=== PATIENT | female | born 1955 | race Caucasian/White ===

== ENCOUNTER 2016-08-11 10:59 | Inpatient (IN) | payer OTHER ==
[2016-08-11] MEDS ORDERED: IPRATROPIUM/ALBUTEROL 3 ML DEYVIAL IH ONE (11:17)
[2016-08-11] MEDS ORDERED: methylPREDNISolone SOD SUCC 125 MG/2 ML VIAL IVP ONE (11:20)
--- NOTE | 2016-08-11 11:30 | CPEKG ---
Heart Rate: 79 RR Interval: 759 P-R Interval: 164 QRSD Interval: 94 QT Interval: 396 QTC Interval: 455 P [place]: 44 QRS [place]: 9 T Wave [place]: 16 EKG Severity - BORDERLINE ECG - EKG Impression: SINUS RHYTHM EKG Impression: BORDERLINE T ABNORMALITIES, ANTERIOR LEADS Electronically Signed By: Rl Abdalla 11-Aug-2016 15:35:31
[2016-08-11] MEDS ORDERED: ALBUTEROL 3 ML DEYVIAL IH ONE ×3 (11:39→15:08)
[2016-08-11 12:11] LABS: % IMMATURE GRANULYOCYTES 0.2 % (0.0-1.1); ABSOLUTE IMMATURE GRANULOCYTES 0.01 10^3/uL (0.00-0.10); ADD DIFF? NO; ADD MORPH? NO; ADD SCAN? NO; ATYPICAL LYMPHOCYTE FLAG 10 (0-99); FRAGMENT RBC FLAG 0 (0-99); HEMATOCRIT 46.2 % (38.0-47.0); HEMOGLOBIN 15.5 g/dL (12.6-16.3); LEFT SHIFT FLG 0 (0-99); LIPEMIA HEMOLYSIS FLAG 80 (0-99); MEAN CELL HEMOGLOBIN 32.1 pg (27.9-34.1); MEAN CELL HEMOGLOBIN CONCENTR. 33.5 g/dL (32.4-36.7); MEAN CELL VOLUME 95.7 fL (81.5-99.8); MEAN PLATELET VOLUME 10.2 fL (8.7-11.7); PLATELET CLUMPS FLAG 0 (0-99); PLATELET COUNT 201 10^3/uL (150-400); RED BLOOD CELL COUNT 4.83 10^6/uL (4.18-5.33); RED CELL DISTRIBUTION WIDTH 13.6 % (11.5-15.2)
[2016-08-11] MEDS ORDERED: NS 500 ML IV ONE (13:00)
[2016-08-11] MEDS ORDERED: IOPAMIDOL (ISOVUE 370) 100 ML BTL IV ONE (13:35)
--- NOTE | 2016-08-11 14:35 | CPEKG ---
Heart Rate: 87 RR Interval: 690 P-R Interval: 180 QRSD Interval: 98 QT Interval: 392 QTC Interval: 472 P [place]: 44 QRS [place]: 4 T Wave [place]: 47 EKG Severity - BORDERLINE ECG - EKG Impression: SINUS RHYTHM EKG Impression: PROBABLE LEFT ATRIAL ABNORMALITY Electronically Signed By: Rl Abdalla 11-Aug-2016 15:35:20
--- NOTE | 2016-08-11 15:20 | UCPHY ---
H & P Patient Type: Established Chief Complaint Nursing Narrative: fatigue, unable to breathe with low grade fever since yesterday in pt with known asthma. home meds not helping. Time Seen by Provider: 08/11/16 11:19 HPI/ROS: This patient describes onset of illness on Friday afternoon with a dry intermittent cough and wheeze. She has associated coryza in over the weekend her symptoms significantly worsen despite use of her albuterol inhaler. This morning she awakened with moderate respiratory distress despite the albuterol and came in for evaluation. She also reports chest pain since the 1st day of her symptoms-on Friday. She describes this as generalized achiness in her chest that worsens with coughing. She states the intensity is moderate. She is uncertain if this is bronchial in origin or not. At times she has a squeezing pain as well. Peak intensity of her chest discomfort is 8/10. This is the worst dyspnea that she has ever had with a history of prior asthma that is typically mild to moderate. ROS: No high fevers or chills. She does think she has low-grade fevers. She has not checked her temperature at home. She does have fatigue that is increased today. No other constitutional symptoms. HEENT: Coryza. No significant sore throat. No ear pain. No other HEENT complaints. Pulmonary: No pleuritic pain. No hemoptysis. No significant production to her cough. Cardiovascular: No lightheadedness. No heart palpitations. She reports mild swelling to the left foot over the past few days. She admits sedentary lifestyle particularly at work where she often has to remain seated for several hours at a time. No calf pain. GI: No belly pain. No nausea vomiting. Endocrine: No diaphoresis or other symptoms : No complaints 10 point ROS is otherwise negative Source: Patient Exam Limitations: No limitations - Personal History Current Tetanus Diphtheria and Acellular Pertussis (TDAP): Yes - Medical/Surgical History PMH: Xsmdmf-yldm-df-moderate Breast cancer with mastectomy several years ago cancer free on recheck since then. Hypothyroidism GERD Obesity Hx Asthma: Yes Hx Chronic Respiratory Disease: No Hx Diabetes: No Hx Cardiac Disease: No Hx Renal Disease: No Hx Cirrhosis: No Hx Alcoholism: No Hx HIV/AIDS: No Hx Splenectomy or Spleen Trauma: No Other PMH: ASTHMA, KNEE SURG, HYST, LAP BAND, SINUS SURG, ANXIETY, R masectomy, GERD - Family History Significant Family History: No pertinent family hx - Social History Smoking Status: Never smoked Alcohol Use: None Drug Use: None Additional Social History: She is accompanied by her today. - Physical Exam Exam: Vital signs are initially notable for hypertension, tachypnea and hypoxia. General Appearance: Mild respiratory distress on arrival. Eyes: Pupils equal and round no pallor or injection. ENT, Mouth: Mucous membranes moist. Respiratory: Diffuse rhonchi and expiratory wheezing. No rales are appreciated. Cardiovascular: Tachycardic with no murmur gallop or rub. She does have mild left pedal/ankle edema. No posterior calf tenderness. Gastrointestinal: Abdomen is soft and nontender, no masses, bowel sounds normal. Neurological: Alert with no focal deficits. Skin: Warm and dry, no rashes. Musculoskeletal: Neck is supple nontender. Extremities are symmetrical, full range of motion. Psychiatric: Mood and affect are normal DIFFERENTIAL DIAGNOSIS: After history and physical exam differential diagnosis was considered for asthma exacerbation, PE, coronary syndrome, CHF, pneumonia, pneumothorax Constitutional: Initial Vital Signs O2 Sat (%) 96 08/11/16 11:20 O2 Delivery Mode Room Air O2 (L/minute) 4 Allergies/Adverse Reactions: No Known Allergies Allergy (Verified 08/11/16 11:39) Home Medications: Medication Instructions Recorded Advair 250/50 (RX) 11/01/13 Albuterol 11/01/13 Protonix 11/01/13 Wellbutrin Sr 11/27/14 Thyroid 08/11/16 Medical Decision Making - Diagnostics EKG Interpretation: 12 lead EKG performed at 11:20 a.m. reveals sinus rhythm at 79 Intervals: Normal throughout [place]: Normal throughout ST segments are notable for T-wave inversion in lead V2 Overall assessment sinus rhythm with borderline anterior T-wave abnormalities with no prior EKG for comparison cannot rule out anterior ischemia, electrolyte abnormality or albuterol effect Repeat EKG performed at 2:32 p.m. to rule out interval change reveals sinus rhythm at 87 Intervals and axis remained normal T-wave inversion in V2 persists with no interval change by my interpretation. Imaging: Chest x-ray: Evidence of airway disease, borderline cardiomegaly without focal infiltrate by my interpretation CT angio chest wet read by Dr. Dean Ledezma: Negative for pulmonary embolism. No infiltrates. Heart size appears normal. There is slight increase in mediastinal lymphadenopathy compared to prior study and he recommends a repeat since diet the in the future and follow up with her oncologist. He does not appreciate evidence of pulmonary edema on the CT angio. No effusions. ED Course/Re-evaluation: IV, monitor, nasal cannula O2-4 L with improvement in O2 sat from low to mid 80s to low 90s. DuoNeb followed by 2 albuterol nebs with increased aeration and some subjective relief but persistent hypoxia to the mid 80s. On recheck her aeration is improved but persistent significant wheezing is present primarily on expiration. After her return from CT angio she has slight increase in symptoms treated with another albuterol neb. I counseled her regarding her negative CT angio chest but concern for potential mild increase in mediastinal lymph node size warranting oncology follow-up. I discussed the case with Dr. Murray Milligan, hospitalist at [facility] accepts patient for transfer for admission to [facility] for further treatment for this patient with URI complicated by asthma exacerbation hypoxia. After workup, with find no evidence of pulmonary embolism, coronary syndrome, pneumothorax, pneumonia or other complicating factors except for mild enlargement of her mediastinal lymph nodes warranting follow up with Oncology. I think that her EKG is likely baseline with inverted V2 but also recommended follow up with Cardiology for further workup given her symptoms. - Data Points Laboratory Results: Laboratory Results 08/11/16 12:02 08/11/16 12:02 08/11/16 08/11/16 08/11/16 12:32 12:02 12:02 WBC RBC Hgb POC Hgb 16.7 gm/dL H gm/dL (12.3-15.9) Hct POC Hct 49 % H % (35.5-47.5) MCV MCH MCHC RDW Plt Count MPV Neut % (Auto) Lymph % (Auto) [place] % (Auto) Eos % (Auto) Baso % (Auto) Nucleat RBC Rel Count Absolute Neuts (auto) Absolute Lymphs (auto) Absolute Monos (auto) Absolute Eos (auto) Absolute Basos (auto) Absolute Nucleated RBC Immature Gran % Immature Gran # D-Dimer 1.62 ug/mLFEU H ug/mLFEU (0.00-0.50) POC Sodium 144 mEq/L mEq/L (134-144) Sodium REJ POC Potassium 4.3 mEq/L mEq/L (3.3-5.0) Potassium REJ POC Chloride 102 mEq/L mEq/L (96-108) Chloride REJ Carbon Dioxide REJ Anion Gap REJ POC BUN 16 mg/dL mg/dL (7-23) BUN REJ Creatinine REJ POC Creatinine 0.8 mg/dL mg/dL (0.6-1.2) Estimated GFR REJ Glucose REJ POC Glucose 88 mg/dL mg/dL (70-100) Calcium REJ Troponin I REJ 08/11/16 12:02 WBC 5.22 10^3/uL 10^3/uL (3.80-9.50) RBC 4.83 10^6/uL 10^6/uL (4.18-5.33) Hgb 15.5 g/dL g/dL (12.6-16.3) POC Hgb Hct 46.2 % % (38.0-47.0) POC Hct MCV 95.7 fL fL (81.5-99.8) MCH 32.1 pg pg (27.9-34.1) MCHC 33.5 g/dL g/dL (32.4-36.7) RDW 13.6 % % (11.5-15.2) Plt Count 201 10^3/uL 10^3/uL (150-400) MPV 10.2 fL fL (8.7-11.7) Neut % (Auto) 69.6 % % (39.3-74.2) Lymph % (Auto) 14.8 % L % (15.0-45.0) [place] % (Auto) 12.5 % % (4.5-13.0) Eos % (Auto) 2.5 % % (0.6-7.6) Baso % (Auto) 0.4 % % (0.3-1.7) Nucleat RBC Rel Count 0.0 % % (0.0-0.2) Absolute Neuts (auto) 3.64 10^3/uL 10^3/uL (1.70-6.50) Absolute Lymphs (auto) 0.77 10^3/uL L 10^3/uL (1.00-3.00) Absolute Monos (auto) 0.65 10^3/uL 10^3/uL (0.30-0.80) Absolute Eos (auto) 0.13 10^3/uL 10^3/uL (0.03-0.40) Absolute Basos (auto) 0.02 10^3/uL 10^3/uL (0.02-0.10) Absolute Nucleated RBC 0.00 10^3/uL 10^3/uL (0-0.01) Immature Gran % 0.2 % % (0.0-1.1) Immature Gran # 0.01 10^3/uL 10^3/uL (0.00-0.10) D-Dimer POC Sodium Sodium POC Potassium Potassium POC Chloride Chloride Carbon Dioxide Anion Gap POC BUN BUN Creatinine POC Creatinine Estimated GFR Glucose POC Glucose Calcium Troponin I Medications Given: Discontinued Medications Albuterol (Proventil Neb) 3 ml IH EDNOW ONE Stop: 08/11/16 11:40 Last Admin: 08/11/16 11:56 Dose: 3 ml Albuterol (Proventil Neb) 3 ml IH CONT ONE Stop: 08/11/16 12:19 Last Admin: 08/11/16 12:45 Dose: 3 ml Albuterol/Ipratropium (Duoneb) 3 ml IH EDNOW ONE Stop: 08/11/16 11:18 Last Admin: 08/11/16 11:38 Dose: 3 ml Methylprednisolone Sodium Succinate (Solu-Medrol) 125 mg IVP EDNOW ONE Stop: 08/11/16 11:21 Last Admin: 08/11/16 12:07 Dose: 125 mg Point of Care Test Results: 08/11/16 12:32 POC Sodium 144 POC Potassium 4.3 POC Chloride 102 POC BUN 16 POC Creatinine 0.8 POC Glucose 88 Departure - Departure Disposition: [facility] Inpatient Acute Clinical Impression: Asthma exacerbation, Hypoxia, Viral upper respiratory infection, Mediastinal lymphadenopathy Condition: Fair Referrals: MICHELL MILLER [Other] - As per Instructions - PQRS PQRS Measurement: NA
[2016-08-11] MEDS ORDERED: ALBUTEROL 3 ML DEYVIAL IH PRN (17:39)
[2016-08-11] MEDS ORDERED: ONDANSETRON 4 MG/2 ML VIAL IVP PRN (17:39)
[2016-08-11] MEDS ORDERED: ONDANSETRON DISINTEGRATING 4 MG TAB PO PRN (17:39)
--- NOTE | 2016-08-11 18:24 | GHP ---
[f rep st] HISTORY AND PHYSICAL DATE OF ADMISSION: 08/11/2016 HISTORY OF PRESENT ILLNESS: The patient is a pleasant 60-year-old female with a history of mild int ermittent asthma as well as remote breast cancer who presents with several days of increasing shortn ess of breath and work of breathing, as well as wheezing. She has had a sore throat and hoarse voic e. A number of people at work have had "the crud." She has not had drenching night sweats. She fuentes s had low-grade temperatures. She has had no hemoptysis. She has had regular breast cancer followu p, and she took 5 years of tamoxifen for estrogen receptors. She says there is occasional chest discomfort with coughing. She has had no weight loss of late. REVIEW OF SYSTEMS: A complete 10-point review of systems was conducted and negative except as noted in the HPI. PAST MEDICAL HISTORY: 1. Breast cancer. 2. Laparoscopic gastric banding. 3. Hysterectomy. 4. History of knee surgery. 5. Hypothyroidism. 6. Anxiety. 7. Right mastectomy. 8. Reflux. ALLERGIES: No known drug allergies. MEDICATIONS: [place] Thyroid, Protonix, Advair, bupropion, and albuterol. SOCIAL HISTORY: She lives in [place]. 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 She is a nonsmoker. Minimal alcohol. FAMILY HISTORY: Reviewed and unremarkable. PHYSICAL EXAMINATION: VITAL SIGNS: Temperature 37.4, blood pressure 201/123 and now 163/85, pulse 96, breathing 20 times a minute, 81% on room air and now 90 on 4 L. GENERAL: In no acute distress. HEENT: Sclerae anicteric. Oropharynx clear. Mucous membranes moist. NECK: Supple, without lym phadenopathy or JVD. LUNGS: Showed decreased air movement with scattered bilateral wheezes, with n o focal decreased breath sounds and no crackles. HEART: S1, S2, without murmurs. ABDOMEN: Soft, nontender, nondistended. EXTREMITIES: Lower extremities without edema. Calves nontender. SKIN: Without rash. NEUROLOGIC: Exam is nonfocal. LABORATORY DATA: White count is 5.2, hematocrit is 46, and platelets are 201,000. D-dimer is 1.6. Sodium 144, potassium 4.3, chloride 102, BUN 16, creatinine 0.8, glucose 88. CTA of the chest show s no acute pulmonary embolism. There is some mediastinal lymphadenopathy. Chest x-ray interpreted by me shows possible cardiomegaly, although it was a 1-view chest x-ray. No infiltrate. Low-quality film. EKG interpreted by me shows sinus at 79 with normal axis and interv als, and T-wave inversion in lead 3 as well as V1 and V2. Lead V2 looks an awful lot like lead V1. There is no prior for comparison. I have discussed the case Dr. Galan in the emergency department. ASSESSMENT AND PLAN: This is a 60-year-old female with breast cancer and asthma who presents with a pparent bronchitis. 1. Bronchitis. This is severe, with an asthma exacerbation and hypoxia. We will treat her steroid s. Check influenza. Do scheduled DuoNeb and p.r.n. albuterol q.2 hours. We can hold the antibioti cs at this time given her absence of lung disease or immunocompromise. 2. Mediastinal lymphadenopathy. This is more than likely secondary to viral syndrome, but followup imaging is warranted in 4-6 weeks to ensure resolution given her history of breast cancer. There a re no other red flag symptoms. 3. Hypoxia. This is secondary to hyperinflation from her viral illness. I think pulmonary embolis m is ruled out. She does not have pneumonia. 4. Prophylaxis. Moderate risk. Started on pharmacologic DVT prophylaxis. DISPOSITION: Observation status. /[id number]/MODL
[2016-08-11] MEDS: predniSONE 20 MG TAB PO SCH (18:25)
[2016-08-11] MEDS: buPROPion XL 150 MG TAB PO SCH (18:25)
[2016-08-11] MEDS: ACETAMINOPHEN 325 MG TAB PO PRN (18:25)
[2016-08-11] MEDS: IPRATROPIUM/ALBUTEROL 3 ML DEYVIAL IH SCH (19:55)
[2016-08-11] MEDS: FLUTICASONE/SALMETER 250/50MCG DISKUS IH SCH (20:03)
[2016-08-11] MEDS: OSELTAMIVIR PHOSPHATE 75 MG CAP PO SCH (20:36)
[2016-08-12] MEDS: BENZONATATE 100 MG CAP PO PRN ×2 (01:02→21:03)
[2016-08-12] MEDS: ACETAMINOPHEN 325 MG TAB PO PRN (01:03)
[2016-08-12 04:30] LABS: % IMMATURE GRANULYOCYTES 0.3 % (0.0-1.1); ABSOLUTE IMMATURE GRANULOCYTES 0.01 10^3/uL (0.00-0.10); ADD DIFF? NO; ADD MORPH? NO; ADD SCAN? NO; ATYPICAL LYMPHOCYTE FLAG 0 (0-99); FRAGMENT RBC FLAG 0 (0-99); HEMATOCRIT 42.5 % (38.0-47.0); HEMOGLOBIN 14.2 g/dL (12.6-16.3); LEFT SHIFT FLG 0 (0-99); LIPEMIA HEMOLYSIS FLAG 80 (0-99); MEAN CELL HEMOGLOBIN 32.3 pg (27.9-34.1); MEAN CELL HEMOGLOBIN CONCENTR. 33.4 g/dL (32.4-36.7); MEAN CELL VOLUME 96.6 fL (81.5-99.8); MEAN PLATELET VOLUME 9.9 fL (8.7-11.7); PLATELET CLUMPS FLAG 0 (0-99); PLATELET COUNT 183 10^3/uL (150-400); RED CELL DISTRIBUTION WIDTH 13.6 % (11.5-15.2)
[2016-08-12 04:49] LABS: ANION GAP 10 mEq/L (8-16); CARBON DIOXIDE 21 mEq/l (22-31); CHLORIDE 109 mEq/L (97-110); CREATININE 0.5 mg/dL (0.6-1.0); GLOMERULAR FILTRATION RATE > 60; GLUCOSE 135 mg/dL (70-100); POTASSIUM 3.9 mEq/L (3.5-5.2); SODIUM 140 mEq/L (134-144)
[2016-08-12] MEDS: IPRATROPIUM/ALBUTEROL 3 ML DEYVIAL IH SCH ×4 (06:19→20:48)
[2016-08-12] MEDS: FLUTICASONE/SALMETER 250/50MCG DISKUS IH SCH ×2 (06:24→20:48)
[2016-08-12] MEDS ORDERED: OSELTAMIVIR PHOSPHATE 75 MG CAP PO SCH (08:00)
[2016-08-12] MEDS: predniSONE 20 MG TAB PO SCH (08:49)
[2016-08-12] MEDS: PANTOPRAZOLE SODIUM 40 MG TAB PO SCH (08:50)
[2016-08-12] MEDS: buPROPion XL 150 MG TAB PO SCH (08:50)
[2016-08-12] MEDS: OSELTAMIVIR PHOSPHATE 75 MG CAP PO SCH ×2 (08:50→18:05)
[2016-08-12] MEDS ORDERED: ENOXAPARIN 40 MG/0.4 ML SYR SC SCH (09:00)
--- NOTE | 2016-08-12 09:45 | HOSPPROG ---
Hospitalist Progress Note Assessment/Plan: 60 yo F w influenza B, severe asthma exacerbation asthma: continue steroids, nebs ok to use po steroids exam improved, hypoxemia worse hypoxemia: severe check cxr to look for progressive airspace disease wean 02 influenza: tamiflu started proph: enox mediastinal LAD: almost certainly due to viral illness but will need repeat CT given h/o breast CA dispo: inpatient Subjective: case d/w dr younger. worsening hypoxia. symptomatically improved Objective: Vital Signs Temp Pulse Resp BP Pulse Ox 36.7 C 73 18 153/76 H 93 08/12/16 09:13 08/12/16 09:13 08/12/16 09:13 08/12/16 09:13 08/12/16 09:13 Laboratory Results 08/12/16 04:16 08/12/16 04:16 08/11/16 08/12/16 08/13/16 05:59 05:59 05:59 Intake Total 1000 Balance 1000 - Physical Exam Constitutional: no apparent distress, appears nourished Eyes: PERRL, anicteric sclera Ears, Nose, Mouth, Throat: moist mucous membranes, hearing normal Cardiovascular: regular rate and rhythym, no murmur, rub, or gallop Respiratory: no respiratory distress, other (improved air movement, scattered wheeze. no areas of focal decreased breath sounds) Gastrointestinal: normoactive bowel sounds, soft, non-tender abdomen Genitourinary: No montoya in urethra Skin: warm, normal color Musculoskeletal: full muscle strength, no muscle tenderness Neurologic: AAOx3 ICD10 Worksheet Patient Problems: Problems Problem Status Onset Asthma exacerbation Acute Hypoxia Acute Mediastinal lymphadenopathy Acute Viral upper respiratory infection Acute
[2016-08-12] MEDS: AZITHROMYCIN IV 500 MG in D5W 250 ML IV SCH (16:20)
[2016-08-12] MEDS: ENOXAPARIN 40 MG/0.4 ML SYR SC SCH (21:02)
[2016-08-13] MEDS: IPRATROPIUM/ALBUTEROL 3 ML DEYVIAL IH SCH ×4 (06:48→20:15)
[2016-08-13] MEDS: AZITHROMYCIN IV 500 MG in D5W 250 ML IV SCH (08:33)
[2016-08-13] MEDS: PANTOPRAZOLE SODIUM 40 MG TAB PO SCH (08:33)
[2016-08-13] MEDS: CYANO/VITAMIN B12 100 MCG TAB PO SCH (08:33)
[2016-08-13] MEDS: buPROPion XL 150 MG TAB PO SCH (08:33)
[2016-08-13] MEDS: predniSONE 20 MG TAB PO SCH (08:33)
[2016-08-13] MEDS: OSELTAMIVIR PHOSPHATE 75 MG CAP PO SCH ×2 (08:34→17:53)
[2016-08-13] MEDS: ENOXAPARIN 40 MG/0.4 ML SYR SC SCH ×2 (08:36→20:00)
[2016-08-13] MEDS: FLUTICASONE/SALMETER 250/50MCG DISKUS IH SCH ×2 (08:53→20:15)
[2016-08-13] MEDS: NATURE THYROID PO SCH (08:55)
[2016-08-13] MEDS ORDERED: NATURE THROID PO SCH (09:00)
--- NOTE | 2016-08-13 09:56 | HOSPPROG ---
Hospitalist Progress Note Assessment/Plan: 60 yo F w influenza B, severe asthma exacerbation asthma: continue steroids, nebs ok to use po steroids exam improved, hypoxemia worse CAP: uncertain if viral vs secondary bacterial pneumonia day 2 ceftriaxone/azithro hypoxemia: severe check cxr to look for progressive airspace disease wean 02 high risk- still requiring 10 L. failed wean at 5 L this AM influenza: tamiflu started proph: enox mediastinal LAD: almost certainly due to viral illness but will need repeat CT given h/o breast CA dispo: inpatient Subjective: afebrile. weaning 02 Objective: Vital Signs Temp Pulse Resp BP Pulse Ox 37.3 C 69 20 157/107 H 93 08/13/16 08:35 08/13/16 08:35 08/13/16 08:35 08/13/16 08:51 08/13/16 08:35 08/12/16 08/13/16 08/14/16 05:59 05:59 05:59 Intake Total 500 Balance 500 - Physical Exam Constitutional: no apparent distress, appears nourished Eyes: PERRL, anicteric sclera Ears, Nose, Mouth, Throat: moist mucous membranes, hearing normal Cardiovascular: regular rate and rhythym, no murmur, rub, or gallop, No tachycardia Respiratory: no respiratory distress, inspiratory crackles, No no rales or rhonchi, No expiratory wheeze Gastrointestinal: normoactive bowel sounds, soft, non-tender abdomen Genitourinary: no bladder fullness, No montoya in urethra Skin: warm, normal color Musculoskeletal: full muscle strength, no muscle tenderness Neurologic: AAOx3, sensation intact bilaterally Psychiatric: interacting appropriately ICD10 Worksheet Patient Problems: Problems Problem Status Onset Asthma exacerbation Acute Hypoxia Acute Mediastinal lymphadenopathy Acute Viral upper respiratory infection Acute
[2016-08-14] MEDS: IPRATROPIUM/ALBUTEROL 3 ML DEYVIAL IH SCH ×2 (06:06→09:28)
[2016-08-14 08:25] VITALS: RESP 18
--- NOTE | 2016-08-14 08:41 | HOSPPROG ---
Hospitalist Progress Note Assessment/Plan: #Acute hypoxemic resp failure: multifactorial with asthma, flu and PNA #Influenza B: Tamiflu #Asthma exacerbation: steroids and nebs #Mediastinal LAD: likely viral. Repeat CT given h/o breast cancer Disp: DC today Subjective: no SOB Objective: Vital Signs Temp Pulse Resp BP Pulse Ox 37.2 C 70 18 151/71 H 91 L 08/14/16 08:00 08/14/16 08:00 08/14/16 08:00 08/14/16 08:00 08/14/16 08:00 08/13/16 08/14/16 08/15/16 05:59 05:59 05:59 Intake Total 500 1250 Balance 500 1250 - Physical Exam Constitutional: no apparent distress Eyes: PERRL Cardiovascular: regular rate and rhythym, no murmur, rub, or gallop Respiratory: no respiratory distress, other (no wheezes, moving good air) Skin: warm Musculoskeletal: full muscle strength Neurologic: AAOx3 Psychiatric: interacting appropriately ICD10 Worksheet Patient Problems: Problems Problem Status Onset Asthma exacerbation Acute Hypoxia Acute Mediastinal lymphadenopathy Acute Viral upper respiratory infection Acute
[2016-08-14] MEDS: buPROPion XL 150 MG TAB PO SCH (08:43)
[2016-08-14] MEDS: OSELTAMIVIR PHOSPHATE 75 MG CAP PO SCH (08:43)
[2016-08-14] MEDS: predniSONE 20 MG TAB PO SCH (08:43)
[2016-08-14] MEDS: PANTOPRAZOLE SODIUM 40 MG TAB PO SCH (08:43)
[2016-08-14] MEDS: CYANO/VITAMIN B12 100 MCG TAB PO SCH (08:43)
[2016-08-14] MEDS: AZITHROMYCIN IV 500 MG in D5W 250 ML IV SCH (08:44)
[2016-08-14] MEDS: NATURE THYROID PO SCH (08:45)
[2016-08-14] MEDS: FLUTICASONE/SALMETER 250/50MCG DISKUS IH SCH (08:45)
[2016-08-14] MEDS: ENOXAPARIN 40 MG/0.4 ML SYR SC SCH (08:59)
--- NOTE | 2016-08-14 10:11 | GDS ---
[f rep st] DISCHARGE SUMMARY DISCHARGE DIAGNOSES: 1. Acute hypoxic respiratory failure. 2. Influenza B. 3. Asthma exacerbation. 4. Community-acquired pneumonia. 5. Mediastinal lymphadenopathy. HISTORY OF PRESENT ILLNESS: The patient is a 60-year-old female with history of mild intermittent a sthma and remote breast cancer, presenting with several days of increasing shortness of breath and w heezing. She also reported sore throat and hoarse voice. She has had low-grade fevers. Some chest discomfort with coughing. The patient was initially seen in urgent care clinic and was found to be hypoxic. CTA was negative for pulmonary embolism. HOSPITAL COURSE BY PROBLEM: 1. Acute hypoxic respiratory failure: Multifactorial with influenza B community-acquired pneumonia and asthma exacerbation. Patient's O2 saturations have much improved. She will need to be dischar ged on 1 L nasal cannula, and to follow up with her PCP. 2. Influenza B: Complete 5 days of Tamiflu. 3. Community-acquired pneumonia: We treated empirically with ceftriaxone and azithromycin here. W ill complete a course of Zithromax at discharge. 4. Asthma exacerbation: Secondary to influenza and pneumonia. She will complete a course of azith romycin and prednisone burst. Provided albuterol nebulizer treatment at home. 5. Mediastinal lymphadenopathy: Likely reactive from acute infection. But, given history of breas t cancer, recommend followup CT. 6. History of breast cancer: Tamoxifen therapy for 5 years. Follow up as previously scheduled. DISPOSITION: Patient is stable for discharge. FOLLOWUP: 1. PCP for oxygen. 2. Repeat CT chest in 3-6 months to re-evaluate mediastinal lymphadenopathy. /[id number]/MODL
[2016-08-14 12:06] VITALS: BP 141/83; PULSE 71; TEMP 98.4; O2SAT 88
== END 2016-08-14 13:21 | disposition home or self-care (01) | DRG 189 ==
LOC: CED 10:59 → INTOOBSV 15:05 → CEDHOLD 15:05 → F1N 16:49 → OBSVTOIN 08-12 09:41
PROVIDERS: ADMIT Internal Medicine; ATTEND Internal Medicine
DX: J96.01 Acute respiratory failure with hypoxia (principal); J10.00 Influenza due to other identified influenza virus with unspecified type of pneumonia; J44.1 Chronic obstructive pulmonary disease with (acute) exacerbation; J40 Bronchitis, not specified as acute or chronic; R59.0 Localized enlarged lymph nodes; E03.9 Hypothyroidism, unspecified; K21.9 Gastro-esophageal reflux disease without esophagitis; E66.9 Obesity, unspecified; F41.9 Anxiety disorder, unspecified; Z85.3 Personal history of malignant neoplasm of breast; Z90.11 Acquired absence of right breast and nipple; Z90.710 Acquired absence of both cervix and uterus
CPT/HCPCS: 71020-PO; 71275-PO; 80048-PO; 82947-QW; 85025-PO; 85378-PO; 96361-PO; 96374-PO; G0378; G0463-PO; J0456; J0696; J1650; Q9967

== ENCOUNTER → 2016-10-04 | Outpatient (CLI) | payer OTHER ==
[~2016-10-04] MED LIST: IOPAMIDOL (ISOVUE-300) 100 ML BTL ONE
== END ==
LOC: CIMAGING 14:20
DX: R93.8 Abnormal findings on diagnostic imaging of other specified body structures (principal); Z85.3 Personal history of malignant neoplasm of breast; K76.0 Fatty (change of) liver, not elsewhere classified; Z98.84 Bariatric surgery status
CPT/HCPCS: 71260-PO; Q9967

== ENCOUNTER → 2017-04-25 | Outpatient (CLI) | payer OTHER | LOC: CIMAGING 14:48 | DX: Z12.31 Encounter for screening mammogram for malignant neoplasm of breast (principal); Z85.3 Personal history of malignant neoplasm of breast; Z90.11 Acquired absence of right breast and nipple | CPT/HCPCS: G0202-52 ==

== ENCOUNTER → 2018-06-01 | Outpatient (CLI) | payer OTHER | LOC: FIMAGING 12:17 | PROVIDERS: ATTEND Physician Assistant Surgical | DX: Z12.31 Encounter for screening mammogram for malignant neoplasm of breast (principal); Z80.3 Family history of malignant neoplasm of breast ==